=== PATIENT | female | born 1940 | race Two or more races ===

== ENCOUNTER 2018-01-29 09:33 | Emergency (ER) | payer OTHER ==
[~2018-01-29] VITALS: Ht 162.6 cm; Wt 79.8 kg
[~2018-01-29 09:33] MED LIST: DAFLONEX-XL TA1 EACH; DICLOFENAC SODI50 MG PO; HYDROCHLOROTHIA25 MG; LASIX20 MG; METFORMIN HCL500 MG; METOPROLOL SUCC50 MG; NABUMETONE500 MG; ORPH100T PO; PENTOXIFYLLINE400 MG; PROTONIX40 MG; SYNTHROID112 MCG
== END 2018-01-29 16:02 | disposition home or self-care (01) ==
LOC: ER 09:33
DX: M25.562 Pain in left knee (principal); M17.12 Unilateral primary osteoarthritis, left knee

== ENCOUNTER → 2018-03-04 | Outpatient (CLI) | payer OTHER | END | disposition home or self-care (01) | LOC: NUCLEAR 02-02 09:00 | DX: I87.2 Venous insufficiency (chronic) (peripheral) (principal) ==

== ENCOUNTER 2018-03-06 10:32 | Outpatient (CLI) | payer OTHER | END 2018-03-06 10:33 | disposition home or self-care (01) | LOC: NUCLEAR 10:32 | DX: I73.9 Peripheral vascular disease, unspecified (principal) ==